=== PATIENT | male | born 1990 | race Two or more races ===

== ENCOUNTER 2022-03-08 23:24 | Emergency (ER) | payer MEDICAID, OTHER ==
[~2022-03-08] VITALS: Ht 190.5 cm; Wt 104.5 kg
[2022-03-08] MEDS ORDERED: EMTR1TAB15 PO (23:32)
[2022-03-08 23:37] VITALS: BP 115/62
[2022-03-08 23:57] LABS: COVID AG,FIA SOURCE NASAL SWAB
[2022-03-09] MEDS ORDERED: ACETAMINOPHEN 500 MG TABLET PO ONE
[2022-03-09 00:55] LABS: INFLUENZA TYPE B NEGATIVE FOR TYPE B (NEGATIVE)
[2022-03-09 01:13] LABS: INFLUENZA TYPE A POSITIVE FOR TYPE A (NEGATIVE)
== END 2022-03-09 01:00 | disposition home or self-care (01) ==
LOC: EMS 23:25
DX: B34.9 Viral infection, unspecified (principal); Z20.822 Contact with and (suspected) exposure to COVID-19
CPT/HCPCS: 87426; 87804; 99283; C9803; U0003

== ENCOUNTER 2022-05-01 13:40 | Emergency (ER) | payer OTHER ==
[~2022-05-01] VITALS: Ht 190.5 cm; Wt 95.0 kg
[~2022-05-01 13:40] MED LIST: EMTR1TAB15 PO
[2022-05-01 14:12] VITALS: BP 133/88
[2022-05-01 14:32] LABS: COVID AG,FIA SOURCE NASAL SWAB
== END 2022-05-01 15:59 | disposition home or self-care (01) ==
LOC: EMS 13:40
DX: B34.9 Viral infection, unspecified (principal); Z20.822 Contact with and (suspected) exposure to COVID-19; Z79.899 Other long term (current) drug therapy
CPT/HCPCS: 99283

== ENCOUNTER 2022-05-27 16:27 | Emergency (ER) | payer OTHER ==
[~2022-05-27] VITALS: Ht 190.5 cm; Wt 102.3 kg
[2022-05-27] MEDS ORDERED: BICT1TAB PO (16:57)
[2022-05-27 20:52] LABS: COVID AG,FIA SOURCE NASAL SWAB
[2022-05-27] MEDS ORDERED: AZIT250T9 PO (21:23)
[2022-05-27 21:35] VITALS: BP 129/63
== END 2022-05-27 21:44 | disposition home or self-care (01) ==
LOC: EMS 16:51
DX: B34.9 Viral infection, unspecified (principal); J40 Bronchitis, not specified as acute or chronic; Z79.899 Other long term (current) drug therapy; Z20.822 Contact with and (suspected) exposure to COVID-19
CPT/HCPCS: 99283

== ENCOUNTER 2022-11-10 17:54 | Emergency (ER) | payer OTHER ==
[~2022-11-10] VITALS: Ht 190.5 cm; Wt 100.0 kg
[~2022-11-10 17:54] MED LIST changes: +BICT1TAB PO
[2022-11-10 17:56] VITALS: BP 136/82
[2022-11-10 18:22] LABS: COVID AG,FIA SOURCE NASAL SWAB
[2022-11-10 18:38] LABS: RAPID GROUP A STREP NEGATIVE (NEGATIVE)
[2022-11-10 18:47] LABS: INFLUENZA TYPE A NEGATIVE FOR TYPE A (NEGATIVE); INFLUENZA TYPE B NEGATIVE FOR TYPE B (NEGATIVE)
[2022-11-10] MEDS ORDERED: IPRA3S NASAL (19:14)
[2022-11-10] MEDS ORDERED: AZIT250T9 PO (19:15)
== END 2022-11-10 19:22 | disposition home or self-care (01) ==
LOC: EMS 18:01
DX: B34.9 Viral infection, unspecified (principal); Z20.822 Contact with and (suspected) exposure to COVID-19
CPT/HCPCS: 71046; 87430; 87804; 99284